=== PATIENT | female | born 1960 | race Caucasian/White ===

== ENCOUNTER 2021-04-18 17:24 | Emergency (ER) | payer OTHER ==
[2021-04-18] MEDS ORDERED: Zofran 4 MG/2 ML VIAL IV ONE (17:39)
[2021-04-18] MEDS ORDERED: Sodium Chloride 0.9% 1000 ML 1,000 ML IV STA (17:39)
[2021-04-18] MEDS ORDERED: Sodium Chloride 0.9% 1000 ML 1,000 ML ONE (17:51)
[2021-04-18] MEDS ORDERED: Zofran 4 MG/2 ML VIAL ONE (17:51)
[2021-04-18 18:07] LABS: Absolute Neutrophil Ct (ANC) 9.48 (1.4-6.9); BASOPHIL % 0.3 % (0.0-0.4); Basophil (Absolute #) 0.04 (0-0.4); Eosinophil % 0.4 % (0.00-5.0); Eosinophil (Absolute #) 0.05 (0-0.5); Hematocrit 38.7 % (35-47); Hemoglobin 12.6 gm/dl (12.0-16.0); Lymphocyte (Absolute #) 2.38 (1.0-4.6); Lymphocytes % 18.4 % (24.0-44.0); Mean Cell Volume 88.8 fl (78-100); Mean Corpuscular Hemoglobin 28.9 pg (26-32); Mean Corpuscular Hgb Concent. 32.6 g/dl (32-36); Mean Platelet Volume 9.8 fl (7.5-11.0); Monocyte (Absolute #) 0.97 (0.0-1.3); Monocytes % 7.5 % (0.0-12.0); Neutrophil % 73.4 % (36.0-66.0); Platelet Count 456 K/mm3 (150-450); Red Blood Count 4.36 M/mm3 (4.1-5.4); Red Cell Distribution Width 12.7 % (11.5-14.0); White Blood Count 12.9 K/mm3 (4.0-10.5)
[2021-04-18 18:14] LABS: Appearance SLIGHTLY CLOUDY (CLEAR); Bacteria FEW /HPF (NEGATIVE); Bilirubin NEGATIVE (NEGATIVE); Blood MODERATE Ery/ul (0-5); Epithelial Cells RARE /HPF (FEW); Glucose >=500 mg/dL (NEGATIVE); Ketones TRACE (NEGATIVE); Leukocyte Esterase NEGATIVE (NEGATIVE); Mucus SLIGHT /HPF (NEGATIVE); Nitrite NEGATIVE (NEGATIVE); Protein,Urine Dip NEGATIVE (Negative); RBC 0-2 /HPF (0-2); Specific Gravity 1.035 (1.005-1.025); Urobilinogen NEGATIVE mg/dL (0-1)
[2021-04-18 18:18] LABS: ALBUMIN 4.4 g/dL (3.5-5.0); ALKALINE PHOSPHATASE 150 U/L (38-126); AMYLASE 32 U/L (30-110); ANION GAP 17.4 MEQ/L (5-15); BLOOD UREA NITROGEN 6 mg/dL (7-17); CHLORIDE 103 mmol/L (98-107); Calcium 9.4 mg/dL (8.4-10.2); Carbon Dioxide 22 mmol/L (22-30); Creatinine 1 0.59 mg/dL (0.52-1.04); EST GLOMERULAR FILTRATION RATE > 60.0 ML/MIN; Glucose 268 mg/dL (74-106); LIPASE 55 U/L (23-300); Potassium 3.4 mmol/L (3.5-5.1); SGOT/AST 29 U/L (14-36); SGPT/ALT 16 U/L (0-35); SODIUM 138 mmol/L (137-145)
--- NOTE | 2021-04-18 18:35 | ERPHSYRPT ---
- History of Present Illness Historian: patient Exam Limitations: no limitations Patient Subjective Stated Complaint: Abdominal pain Triage Nursing Assessment: Patient ambulated back to ED and transferred self to bed. Patient A+O X 3. Patient's skin pink, warm and dry. Patient complains of N/Vm diarrhea, headache, bodyaches and fatigue for 4 days. Patient complains of abdominal pain 6/10 and gen discomfort. Timing/Duration: day(s) (2) Activities at Onset: none Quality: cramping Abdominal Pain Onset Location: generalized abdomen Pain Radiation: no radiation Severity of Pain-Max: moderate Severity of Pain-Current: moderate Modifying Factors: Improves With: vomiting Associated Symptoms: diarrhea, fever/chills, fatigue, headache, nausea Previous symptoms: no prior history Hx Influenza Vaccination/Date Given: No Hx Pneumococcal Vaccination/Date Given: No Immunizations Up to Date: Yes <LUCINDA WALKER - Last Filed: 04/18/21 18:30> <NIURKA KHAN - Last Filed: 04/18/21 22:44> - History of Present Illness Time Seen by Provider: 04/18/21 17:45 Physician History: Patient is a 61-year-old female presents with a complaint of diffuse abdominal pain nausea vomiting and diarrhea she also complains of fatigue. She also complains of headache and body aches. She is diabetic and reports her sugars have been running higher than normal. She is also had fever chills. She was tested a couple weeks ago and was negative she [place] new to the [place] and [place] doctor. (LUCINDA WALKER) Allergies/Adverse Reactions: Penicillins Allergy (Verified 04/18/21 17:33) Travel Risk - International Travel Have you traveled outside of the country in past 3 weeks: No - Coronavirus Screening Are you exhibiting any of the following symptoms?: Yes Symptoms: Fever, Cough: New Onset, Shortness of Breath, Vomiting/Diarrhea, Headaches/Body Aches/Fatigue - Vaccine Status Have you recieved a Covid-19 vaccination: No <LUCINDA WALKER - Last Filed: 04/18/21 18:30> - Review of Systems Constitutional: Fever, Chills, Fatigue, Lethargy, Weakness Eyes: No Symptoms Ears, Nose, & Throat: No Symptoms Respiratory: Cough, Dyspnea Cardiac: No Chest Pain, No Edema, No Syncope Abdominal/Gastrointestinal: Abdominal Pain, Nausea, Vomiting, Diarrhea Genitourinary Symptoms: No Dysuria Musculoskeletal: Arthralgias, Myalgias, No Back Pain, No Neck Pain Skin: No Symptoms, No Rash Neurological: No Dizziness, No Focal Weakness, No Sensory Changes Psychological: No Symptoms Endocrine: No Symptoms All Other Systems: Reviewed and Negative <LUCINDA WALKER Filed: 04/18/21 18:30> - Past Medical History Pertinent Past Medical History: Yes Neurological History: No Pertinent History Cardiac History: High Cholesterol Endocrine Medical History: Diabetes Type II Musculoskeletal History: No Pertinent History GI Medical History: No Pertinent History History: No Pertinent History Psycho-Social History: No Pertinent History Female Reproductive Disorders: No Pertinent History - Past Surgical History Past Surgical History: Yes Neuro Surgical History: No Pertinent History Cardiac: No Pertinent History Respiratory: No Pertinent History Gastrointestinal: Cholecystectomy Genitourinary: No Pertinent History Musculoskeletal: No Pertinent History Female Surgical History: Tubal Ligation - Social History Smoking Status: Never smoker Exposure to second hand smoke: Yes Drug Use: none Patient Lives Alone: No <LUCINDA WALKER Filed: 04/18/21 18:30> - Physical Exam General Appearance: mild distress, alert Eye Exam: PERRL/EOMI, eyes nml inspection Ears, Nose, Throat Exam: normal ENT inspection, pharynx normal, moist mucous membranes, dry mucous membranes Neck Exam: normal inspection, non-tender, supple, full range of motion Respiratory Exam: normal breath sounds, lungs clear, No respiratory distress Cardiovascular Exam: regular rate/rhythm, normal heart sounds Gastrointestinal/Abdomen Exam: soft, No tenderness, No mass Back Exam: normal inspection, normal range of motion, No CVA tenderness, No vertebral tenderness Extremity Exam: normal inspection, normal range of motion, pelvis stable Neurologic Exam: alert, oriented x 3, cooperative, normal mood/affect, nml cerebellar function, sensation nml, No motor deficits Skin Exam: normal color, warm, dry SpO2 Interpretation: normal SpO2: 96 O2 Delivery: Room Air <LUCINDA WALKER Filed: 04/18/21 18:30> - Nursing Vital Signs Nursing Vital Signs: Initial Vital Signs Temperature 98.5 F 04/18/21 17:35 Pulse Rate 88 04/18/21 17:35 Respiratory Rate 18 04/18/21 17:35 Blood Pressure 191/118 04/18/21 17:35 O2 Sat by Pulse Oximetry 99 04/18/21 17:35 Pain Scale Pain Intensity 3 - Course Nursing assessment & vital signs reviewed: Yes EKG Interpreted by Me: RATE (84), Sinus Rhythm, NORMAL AXIS, NORMAL INTERVALS, Non-specific ST Changes - Radiology Exams Chest X-ray Interpretation: Interpreted by me, Negative <LUCINDA WALKER - Last Filed: 04/18/21 18:30> Ordered Tests: Active Orders 24 hr Category Date Time Status EKG-ER Only STAT Care 04/18/21 17:39 Active IV Insertion STAT Care 04/18/21 17:39 Active ABDOMEN AND PELVIS W CONTRAST [CT] Stat Exams 04/18/21 18:33 Taken CHEST 1 VIEW (PORTABLE) Stat Exams 04/18/21 18:12 Taken AMYLASE Stat Lab 04/18/21 17:45 Completed CBC W DIFF Stat Lab 04/18/21 17:45 Completed CMP Stat Lab 04/18/21 17:45 Completed CULTURE,URINE Stat Lab 04/18/21 17:50 Received LIPASE Stat Lab 04/18/21 17:45 Completed Lactic Acid Stat Lab 04/18/21 18:05 Completed POCT GLUCOSE Stat Lab 04/18/21 17:45 Completed TROPONIN Q3H Lab 04/18/21 17:45 Completed TROPONIN Q3H Lab 04/18/21 20:43 Completed TROPONIN Q3H Lab 04/18/21 23:45 Ordered TROPONIN Q3H Lab 04/19/21 02:45 Ordered TROPONIN Q3H Lab 04/19/21 05:45 Ordered UA W/RFX UR CULTURE Stat Lab 04/18/21 17:50 Completed Medication Summary Generic Name Dose Route Start Last Admin Trade Name Freq PRN Reason Stop Dose Admin Aspirin 324 mg 04/19/21 10:00 04/18/21 22:11 Aspirin 81 Mg Tablet.Ec PO 05/19/21 09:59 Not Given DAILY YANA Discontinued Medications Generic Name Dose Route Start Last Admin Trade Name Freq PRN Reason Stop Dose Admin Aspirin Confirm 04/18/21 22:01 Aspirin 81 Mg Tab.Chew Administered 04/18/21 22:02 Dose 324 mg .ROUTE .STK-MED ONE Aspirin 324 mg 04/18/21 22:12 04/18/21 22:13 Aspirin 81 Mg Tab.Chew PO 04/18/21 22:13 324 mg STAT ONE Administration Sodium Chloride 1,000 mls @ 999 mls/hr 04/18/21 17:39 04/18/21 18:54 Sodium Chloride 0.9% 1000 Ml IV 04/18/21 18:39 Infused .Q1H1M STA Infusion Sodium Chloride Confirm 04/18/21 17:51 Sodium Chloride 0.9% 1000 Ml Administered 04/18/21 17:52 Dose 1,000 mls @ ud .ROUTE .STK-MED ONE Ondansetron HCl 4 mg 04/18/21 17:39 04/18/21 17:53 Ondansetron Hcl 4 Mg/2 Ml Vial IV 04/18/21 17:40 4 mg STAT ONE Administration Ondansetron HCl Confirm 04/18/21 17:51 Ondansetron Hcl 4 Mg/2 Ml Vial Administered 04/18/21 17:52 Dose 4 mg .ROUTE .STK-MED ONE Lab/Rad Data: Laboratory Result Diagrams 04/18/21 17:45 04/18/21 17:45 Laboratory Results 04/18/21 04/18/21 04/18/21 Range/Units 20:43 18:53 18:05 WBC (4.0-10.5) K/mm3 RBC (4.1-5.4) M/mm3 Hgb (12.0-16.0) gm/dl Hct (35-47) % MCV (78-100) fl MCH (26-32) pg MCHC (32-36) g/dl RDW (11.5-14.0) % Plt Count (150-450) K/mm3 MPV (7.5-11.0) fl Gran % (36.0-66.0) % Eos # (Auto) (0-0.5) Absolute Lymphs (auto) (1.0-4.6) Absolute Monos (auto) (0.0-1.3) Lymphocytes % (24.0-44.0) % Monocytes % (0.0-12.0) % Eosinophils % (0.00-5.0) % Basophils % (0.0-0.4) % Absolute Granulocytes (1.4-6.9) Basophils # (0-0.4) Sodium (137-145) mmol/L Potassium (3.5-5.1) mmol/L Chloride (98-107) mmol/L Carbon Dioxide (22-30) mmol/L Anion Gap (5-15) MEQ/L BUN (7-17) mg/dL Creatinine (0.52-1.04) mg/dL Estimated GFR ML/MIN Glucose (74-106) mg/dL POC Glucometer (74 to 106) mg/dL Lactic Acid 1.2 (0.4-2.0) Calcium (8.4-10.2) mg/dL Total Bilirubin (0.2-1.3) mg/dL AST (14-36) U/L ALT (0-35) U/L Alkaline Phosphatase (38-126) U/L Troponin I 0.091 H* (0.000-0.034) ng/mL Serum Total Protein (6.3-8.2) g/dL Albumin (3.5-5.0) g/dL Amylase (30-110) U/L Lipase (23-300) U/L Urine Color (YELLOW) Urine Appearance (CLEAR) Urine pH (5-6) Ur Specific [place] (1.005-1.025) Urine Protein (Negative) Urine Ketones (NEGATIVE) Urine Blood (0-5) Kendrick/ul Urine Nitrite (NEGATIVE) Urine Bilirubin (NEGATIVE) Urine Urobilinogen (0-1) mg/dL Ur Leukocyte Esterase (NEGATIVE) Urine WBC (Auto) (0-5) /HPF Urine RBC (Auto) (0-2) /HPF U Epithel Cells (Auto) (FEW) /HPF Urine Bacteria (Auto) (NEGATIVE) /HPF Urine Mucus (Auto) (NEGATIVE) /HPF Urine Culture Reflexed (NO) Urine Glucose (NEGATIVE) mg/dL Influenza Type A Ag NEGATIVE (NEGATIVE) Influenza Type B Ag NEGATIVE (NEGATIVE) RSV (PCR) NEGATIVE (Negative) SARS-CoV-2 (PCR) NEGATIVE (NEGATIVE) 04/18/21 04/18/21 04/18/21 Range/Units 17:50 17:45 17:45 WBC (4.0-10.5) K/mm3 RBC (4.1-5.4) M/mm3 Hgb (12.0-16.0) gm/dl Hct (35-47) % MCV (78-100) fl MCH (26-32) pg MCHC (32-36) g/dl RDW (11.5-14.0) % Plt Count (150-450) K/mm3 MPV (7.5-11.0) fl Gran % (36.0-66.0) % Eos # (Auto) (0-0.5) Absolute Lymphs (auto) (1.0-4.6) Absolute Monos (auto) (0.0-1.3) Lymphocytes % (24.0-44.0) % Monocytes % (0.0-12.0) % Eosinophils % (0.00-5.0) % Basophils % (0.0-0.4) % Absolute Granulocytes (1.4-6.9) Basophils # (0-0.4) Sodium 138 (137-145) mmol/L Potassium 3.4 L (3.5-5.1) mmol/L Chloride 103 (98-107) mmol/L Carbon Dioxide 22 (22-30) mmol/L Anion Gap 17.4 H (5-15) MEQ/L BUN 6 L (7-17) mg/dL Creatinine 0.59 (0.52-1.04) mg/dL Estimated GFR > 60.0 ML/MIN Glucose 268 H (74-106) mg/dL POC Glucometer (74 to 106) mg/dL Lactic Acid (0.4-2.0) Calcium 9.4 (8.4-10.2) mg/dL Total Bilirubin 0.70 (0.2-1.3) mg/dL AST 29 (14-36) U/L ALT 16 (0-35) U/L Alkaline Phosphatase 150 H (38-126) U/L Troponin I 0.078 H* (0.000-0.034) ng/mL Serum Total Protein 8.0 (6.3-8.2) g/dL Albumin 4.4 (3.5-5.0) g/dL Amylase 32 (30-110) U/L Lipase 55 (23-300) U/L Urine Color YELLOW (YELLOW) Urine Appearance SLIGHTLY CLOUDY (CLEAR) Urine pH 5.0 (5-6) Ur Specific [place] 1.035 (1.005-1.025) Urine Protein NEGATIVE (Negative) Urine Ketones TRACE (NEGATIVE) Urine Blood MODERATE (0-5) Kendrick/ul Urine Nitrite NEGATIVE (NEGATIVE) Urine Bilirubin NEGATIVE (NEGATIVE) Urine Urobilinogen NEGATIVE (0-1) mg/dL Ur Leukocyte Esterase NEGATIVE (NEGATIVE) Urine WBC (Auto) 6-10 (0-5) /HPF Urine RBC (Auto) 0-2 (0-2) /HPF U Epithel Cells (Auto) RARE (FEW) /HPF Urine Bacteria (Auto) FEW (NEGATIVE) /HPF Urine Mucus (Auto) SLIGHT (NEGATIVE) /HPF Urine Culture Reflexed YES (NO) Urine Glucose >=500 (NEGATIVE) mg/dL Influenza Type A Ag (NEGATIVE) Influenza Type B Ag (NEGATIVE) RSV (PCR) (Negative) SARS-CoV-2 (PCR) (NEGATIVE) 04/18/21 04/18/21 Range/Units 17:45 17:45 WBC 12.9 H (4.0-10.5) K/mm3 RBC 4.36 (4.1-5.4) M/mm3 Hgb 12.6 (12.0-16.0) gm/dl Hct 38.7 (35-47) % MCV 88.8 (78-100) fl MCH 28.9 (26-32) pg MCHC 32.6 (32-36) g/dl RDW 12.7 (11.5-14.0) % Plt Count 456 H (150-450) K/mm3 MPV 9.8 (7.5-11.0) fl Gran % 73.4 H (36.0-66.0) % Eos # (Auto) 0.05 (0-0.5) Absolute Lymphs (auto) 2.38 (1.0-4.6) Absolute Monos (auto) 0.97 (0.0-1.3) Lymphocytes % 18.4 L (24.0-44.0) % Monocytes % 7.5 (0.0-12.0) % Eosinophils % 0.4 (0.00-5.0) % Basophils % 0.3 (0.0-0.4) % Absolute Granulocytes 9.48 H (1.4-6.9) Basophils # 0.04 (0-0.4) Sodium (137-145) mmol/L Potassium (3.5-5.1) mmol/L Chloride (98-107) mmol/L Carbon Dioxide (22-30) mmol/L Anion Gap (5-15) MEQ/L BUN (7-17) mg/dL Creatinine (0.52-1.04) mg/dL Estimated GFR ML/MIN Glucose (74-106) mg/dL POC Glucometer 257 H (74 to 106) mg/dL Lactic Acid (0.4-2.0) Calcium (8.4-10.2) mg/dL Total Bilirubin (0.2-1.3) mg/dL AST (14-36) U/L ALT (0-35) U/L Alkaline Phosphatase (38-126) U/L Troponin I (0.000-0.034) ng/mL Serum Total Protein (6.3-8.2) g/dL Albumin (3.5-5.0) g/dL Amylase (30-110) U/L Lipase (23-300) U/L Urine Color (YELLOW) Urine Appearance (CLEAR) Urine pH (5-6) Ur Specific [place] (1.005-1.025) Urine Protein (Negative) Urine Ketones (NEGATIVE) Urine Blood (0-5) Kendrick/ul Urine Nitrite (NEGATIVE) Urine Bilirubin (NEGATIVE) Urine Urobilinogen (0-1) mg/dL Ur Leukocyte Esterase (NEGATIVE) Urine WBC (Auto) (0-5) /HPF Urine RBC (Auto) (0-2) /HPF U Epithel Cells (Auto) (FEW) /HPF Urine Bacteria (Auto) (NEGATIVE) /HPF Urine Mucus (Auto) (NEGATIVE) /HPF Urine Culture Reflexed (NO) Urine Glucose (NEGATIVE) mg/dL Influenza Type A Ag (NEGATIVE) Influenza Type B Ag (NEGATIVE) RSV (PCR) (Negative) SARS-CoV-2 (PCR) (NEGATIVE) - Progress Progress: unchanged <LUCINDA WALKER - Last Filed: 04/18/21 18:30> - Progress Progress: improved Discussed with : Ramez, Other Counseled pt/family regarding: lab results, diagnosis, rad results <NIURKA KHAN - Last Filed: 04/18/21 22:44> - Progress Progress Note: 04/18/21 22:42 61 years old is checked out to me at shift change from Dr. Walker with pending second troponin and CT abdomen pelvis results. Patient presented with abdominal pain, nausea vomiting diarrhea, fevers and body aches. She has a negative COVID-19. CT abdomen pelvis preliminary report negative for any acute findings by Dr. Morillo. I have repeated troponin III hour which is 0.091. Patient although denies any chest pain palpitations or shortness of breath on my evaluation. No abdominal pain. I have discussed with Dr. Harper recommended transfer to facility with cardiology services if troponin is trending up. Discussed with Dr. Sweet and patient is accepted for transfer at [facility]. 04/18/21 22:44 (NIURKA KHAN) - Departure Departure Disposition: Observation Critical Care Time: No <LUCINDA WALKER - Last Filed: 04/18/21 18:30> - Departure Departure Disposition: Transfer Critical Care Time: No <NIURKA KHAN - Last Filed: 04/18/21 22:44> - Departure Clinical Impression: NSTEMI (non-ST elevated myocardial infarction) Abdominal pain Qualifiers: Abdominal location: unspecified location Qualified Code(s): R10.9 - Unspecified abdominal pain Condition: Fair Referrals: DOCTOR,NO FAMILY [Primary Care Provider] - Follow up/PCP as directed Instructions: Acute Abdomen (Belly Pain)
[2021-04-18 19:32] LABS: INFLUENZA A NEGATIVE (NEGATIVE); INFLUENZA B NEGATIVE (NEGATIVE); RESPIRATORY SYNCTIAL VIRUS NEGATIVE (Negative); SARS-CoV-2 Xpert Express NEGATIVE (NEGATIVE)
[2021-04-18] MEDS ORDERED: BABY ASPIRIN 81 MG CHEW ONE (22:01)
[2021-04-18] MEDS ORDERED: BABY ASPIRIN 81 MG CHEW PO ONE (22:12)
--- NOTE | 2021-04-19 09:23 | XRAY ---
Indication: Abdomen pain. Nausea. Comparison: None Portable chest demonstrates normal heart and lungs. Bony thorax intact with mild osteopenia.
--- NOTE | 2021-04-19 09:27 | XRAY ---
Indication: Abdomen pain, nausea, and diarrhea. Multiple contiguous axial images obtained through the abdomen and pelvis using 80 cc Isovue 370 contrast. Comparison: August 07, 2005. Lung bases are clear. Heart not enlarged. Again small hiatal hernia. Noncontrasted stomach and bowel loops appear nonobstructed with normal air-filled appendix and minimal sigmoid diverticulosis. Again previous cholecystectomy. No free fluid/air. Remaining liver, pancreas, spleen, adrenal glands, kidneys, ureters, bladder, and uterus are unremarkable. Mild scattered aortoiliac calcifications. No AAA or pathological retroperitoneal lymphadenopathy. Osseous structures intact. No ventral or inguinal hernias. Impression: 1. Small hiatal hernia and sigmoid diverticulosis. 2. Remaining CT abdomen/pelvis with contrast exam is negative.
[2021-04-19] MEDS ORDERED: ECOTRIN 81 MG PO SCH (10:00)
== END 2021-04-18 23:10 | disposition short-term general hospital (02) ==
LOC: ED 17:24
DX: I21.4 Non-ST elevation (NSTEMI) myocardial infarction (principal); R11.2 Nausea with vomiting, unspecified; R19.7 Diarrhea, unspecified; R50.9 Fever, unspecified; R52 Pain, unspecified; E11.9 Type 2 diabetes mellitus without complications; R51.9 Headache, unspecified
CPT/HCPCS: 0241U; 36000; 36415; 71045; 74177; 80053; 81001; 82150; 82947; 83605; 83690; 84484; 85025; 87086; 93005; 96374; 99285; J2405; A9270-GY